=== PATIENT | male | born 1965 | race African-American/Black ===

== ENCOUNTER → 2017-03-16 | Outpatient (CLI) | payer OTHER ==
[~2017-03-16] MED LIST: ALBUTEROL INH INH; CHLO-101 PO; DICL50TA2 PO; FISH OIL PO; GABA300C10 PO; HYDR12.58 PO; METH500T7 PO; THIA100T10 PO; TURM500C4 PO
[2017-03-16 11:56] LABS: HEMATOCRIT 42.7 % (39.2-51.8); HEMOGLOBIN 14.4 g/dL (13.7-18.0); WHITE BLOOD COUNT 5.4 x10^3/uL (3.4-10)
[2017-03-16 12:10] LABS: ASPARTATE AMINO TRANSFERASE 32 U/L (15-37); BLOOD UREA NITROGEN 17 mg/dL (7-18)
[2017-03-16 12:36] LABS: HIV 1&2 ANTIBODY SCREEN Nonreactive (Nonreactive); HIV-1 p24 ANTIGEN Nonreactive (Nonreactive)
== END | disposition home or self-care (01) ==
LOC: STAR 10:36
PROVIDERS: ATTEND Orthopaedic Surgery Orthopaedic Surgery of the Spine
DX: Z01.818 Encounter for other preprocedural examination (principal); M48.06 Spinal stenosis, lumbar region; M54.16 Radiculopathy, lumbar region; R79.1 Abnormal coagulation profile
CPT/HCPCS: 36415; 71020; 80053; 80074; 81003; 85025; 85610; 85651; 85730; 86703; 87899; 93005; G0435

== ENCOUNTER 2017-04-02 05:37 | Inpatient (IN) | payer OTHER ==
[~2017-04-02] VITALS: Ht 188 cm; Wt 72.6 kg
[2017-04-02] MEDS ORDERED: LACTATED RINGERS 1,000 ML IV SCH (06:15)
[2017-04-02] MEDS ORDERED: HEPARIN 1,000 UNITS/ML, 30ML ONE (06:16)
[2017-04-02] MEDS ORDERED: LIDOCAINE/PF 1%, 30ML ONE (06:19)
[2017-04-02] MEDS ORDERED: BUPIVACAINE/PF 0.5% ONE (06:19)
[2017-04-02] MEDS ORDERED: THROMBIN 5,000 UNIT VIAL TP ONE (06:19)
[2017-04-02] MEDS ORDERED: EPINEPHRINE 1 MG/ML, 1ML ONE (06:20)
[2017-04-02] MEDS ORDERED: VANCOMYCIN 1,000 MG ONE (06:20)
[2017-04-02] MEDS ORDERED: BACITRACIN 50,000 UNIT ONE (06:20)
[2017-04-02] MEDS ORDERED: LIDOCAINE 1%, 2ML SQ PRN (06:30)
[2017-04-02 06:46] VITALS: BP 134/91
[2017-04-02] MEDS ORDERED: MIDAZOLAM 1 MG/ML, 2ML ONE (07:24)
[2017-04-02] MEDS ORDERED: FENTANYL PF 100 MCG/2ML ONE ×4 (07:24→11:39)
[2017-04-02] MEDS ORDERED: ONDANSETRON 2MG/ML, 2ML ONE (07:56)
[2017-04-02] MEDS ORDERED: CEFAZOLIN 1,000 MG ONE (07:56)
[2017-04-02] MEDS ORDERED: ROCURONIUM 10 MG/ML ONE (07:56)
[2017-04-02] MEDS ORDERED: PROPOFOL 10 MG/ML, 20ML ONE (07:56)
[2017-04-02] MEDS ORDERED: EPHEDRINE 50 MG/ML, 1ML ONE (07:56)
[2017-04-02] MEDS ORDERED: DEXAMETHASONE 4 MG/ML, 1ML ONE (07:56)
[2017-04-02] MEDS ORDERED: ACETAMINOPHEN 325 MG TABLET PO PRN (08:30)
[2017-04-02] MEDS ORDERED: PROMETHAZINE 25 MG/ML, 1ML IV PRN (08:30)
[2017-04-02] MEDS ORDERED: ALBUTEROL SULFATE 2.5 MG/3 ML NPPB PRN ×2 (08:30→17:00)
[2017-04-02] MEDS ORDERED: DIAZEPAM 5 MG/ML, 2ML IVPush PRN (08:30)
[2017-04-02] MEDS ORDERED: MEPERIDINE/PF 25MG/0.5ML IVPush PRN (08:30)
[2017-04-02] MEDS ORDERED: OXYcodone 5 MG/5 ML ORAL.SOL UDC PO PRN (08:30)
[2017-04-02] MEDS ORDERED: METOPROLOL 1 MG/ML, 5ML IV PRN (08:30)
[2017-04-02] MEDS ORDERED: FENTANYL PF 100 MCG/2ML IV PRN (08:30)
[2017-04-02] MEDS ORDERED: hydrALAzine 20 MG/ML, 1ML IV PRN (08:30)
[2017-04-02] MEDS ORDERED: HYDROmorphone 2 MG/ML, 1ML ONE (12:13)
[2017-04-02] MEDS ORDERED: FENTANYL PF 100 MCG/2ML EPIDPUSH ONE (12:30)
[2017-04-02] MEDS ORDERED: morphine SULFATE/PF 1 MG/ML, 10ML IVPush ONE (12:30)
[2017-04-02] MEDS ORDERED: ACETAMINOPHEN 325 MG TABLET ONE (14:12)
[2017-04-02] MEDS ORDERED: OXYcodone 5 MG/5 ML ORAL.SOL UDC ONE (14:13)
[2017-04-02] MEDS ORDERED: HYDROmorphone 1 MG/ML, 1ML ONE (14:17)
[2017-04-02] MEDS: HYDROmorphone 1 MG/ML, 1ML IV PRN ×2 (14:19→14:46)
[2017-04-02] MEDS ORDERED: ACETAMINOPHEN 500 MG TABLET PO ONE (14:30)
[2017-04-02] MEDS ORDERED: HYDROmorphone 5 MG, BUPIVACAINE/PF 0.5%, 30ML 62.5 ML in SODIUM CHLORIDE 0.9% 182.5 ML EPIDCONT SCH ×2 (14:30→16:00)
[2017-04-02] MEDS ORDERED: OXYcodone IR 5MG TABLET PO PRN (16:00)
[2017-04-02] MEDS ORDERED: ALBUTEROL SULFATE 200 PUFFS/8.5 GR INH INH PRN (16:00)
[2017-04-02] MEDS ORDERED: NALOXONE 0.4 MG/ML, 1ML IV PRN (16:00)
[2017-04-02] MEDS ORDERED: PROMETHAZINE 25 MG SUPP PR PRN (16:00)
[2017-04-02] MEDS ORDERED: EPHEDRINE 50 MG/ML, 1ML IVPush PRN (16:00)
[2017-04-02] MEDS ORDERED: DIPHENHYDRAMINE 50 MG/ML, 1ML IVPush PRN (16:00)
[2017-04-02] MEDS ORDERED: PROMETHAZINE 25 MG/ML, 1ML IM PRN (16:30)
[2017-04-02] MEDS ORDERED: BISACODYL 10 MG SUPP PR PRN (16:30)
[2017-04-02] MEDS ORDERED: DIAZEPAM 5 MG TABLET PO PRN (16:30)
[2017-04-02] MEDS ORDERED: DIPHENHYDRAMINE 50 MG/ML, 1ML IM PRN (16:30)
[2017-04-02] MEDS ORDERED: DIAZEPAM 5 MG/ML, 2ML IV PRN (16:30)
[2017-04-02] MEDS ORDERED: MAGNESIUM HYDROXIDE 8%, 30ML UDC PO PRN (16:30)
[2017-04-02] MEDS ORDERED: DIPHENHYDRAMINE 50 MG CAPSULE PO PRN (16:30)
[2017-04-02] MEDS ORDERED: LABETALOL 5MG/ML, 20ML IV PRN (16:30)
[2017-04-02] MEDS ORDERED: HYDROmorphone 2 MG/ML, 1ML IM PRN (16:30)
[2017-04-02] MEDS: METOCLOPRAMIDE 5 MG/ML, 2ML IV SCH (17:12)
[2017-04-02] MEDS: CEFAZOLIN PMX 1GM/50ML 50 ML IVPB SCH ×2 (17:15→20:12)
[2017-04-02] MEDS: D5%-0.9% NACL+KCL 20MEQ 1,000 ML IV SCH (17:15)
[2017-04-02 19:29] VITALS: BP 123/67
[2017-04-02] MEDS ORDERED: GABAPENTIN 300 MG CAPSULE PO SCH (21:00)
[2017-04-02] MEDS: GABAPENTIN 300 MG CAPSULE PO SCH (21:11)
[2017-04-02] MEDS: ACETAMINOPHEN 500 MG TABLET PO SCH (21:11)
[2017-04-03] VITALS (8 sets, daily range): BP systolic 96–105; BP diastolic 55–67
[2017-04-03] MEDS: METOCLOPRAMIDE 5 MG/ML, 2ML IV SCH ×2 (00:18→09:28)
[2017-04-03] MEDS: D5%-0.9% NACL+KCL 20MEQ 1,000 ML IV SCH ×3 (00:30→19:39)
[2017-04-03] MEDS: CEFAZOLIN PMX 1GM/50ML 50 ML IVPB SCH ×3 (03:53→23:21)
[2017-04-03] MEDS ORDERED: KETOROLAC 30 MG/1 ML IM ONE (07:00)
[2017-04-03] MEDS: HYDROCHLOROTHIAZIDE 12.5 MG CAPSULE PO SCH (09:00)
[2017-04-03] MEDS: CETIRIZINE 10 MG TABLET PO SCH (09:26)
[2017-04-03] MEDS: GABAPENTIN 300 MG CAPSULE PO SCH ×3 (09:26→20:56)
[2017-04-03] MEDS: ACETAMINOPHEN 500 MG TABLET PO SCH ×3 (09:26→20:56)
[2017-04-03] MEDS: SENNA/DOCUSATE TABLET PO SCH (09:28)
[2017-04-03] MEDS ORDERED: METHYLNALTREXONE 12 MG/0.6 ML SQ ONE (13:30)
[2017-04-03] MEDS ORDERED: ZOLPIDEM 5MG TABLET PO PRN (21:00)
[2017-04-04] MEDS: D5%-0.9% NACL+KCL 20MEQ 1,000 ML IV SCH ×4 (00:30→23:39)
[2017-04-04 03:29] VITALS: BP 94/57
[2017-04-04] MEDS: OXYcodone IR 5MG TABLET PO PRN ×2 (03:54→10:26)
[2017-04-04 07:00] VITALS: BP 113/67
[2017-04-04] MEDS: CEFAZOLIN PMX 1GM/50ML 50 ML IVPB SCH ×3 (07:00→23:02)
[2017-04-04] MEDS: ACETAMINOPHEN 500 MG TABLET PO SCH ×3 (08:24→20:33)
[2017-04-04] MEDS: HYDROCHLOROTHIAZIDE 12.5 MG CAPSULE PO SCH (08:24)
[2017-04-04] MEDS: CETIRIZINE 10 MG TABLET PO SCH (08:24)
[2017-04-04] MEDS: GABAPENTIN 300 MG CAPSULE PO SCH ×3 (08:24→20:33)
[2017-04-04] MEDS: SENNA/DOCUSATE TABLET PO SCH (08:25)
[2017-04-04] MEDS ORDERED: OXYcodone IR 5MG TABLET PO SCH (14:00)
[2017-04-04 15:15] VITALS: BP 117/61
[2017-04-04 15:20] VITALS: BP 121/77
[2017-04-04 15:22] VITALS: BP 120/86
[2017-04-04] MEDS ORDERED: METHYLNALTREXONE 12 MG/0.6 ML SQ ONE (16:00)
[2017-04-04 19:00] VITALS: BP 111/60
[2017-04-05 01:45] VITALS: BP 112/72
[2017-04-05] MEDS: OXYcodone IR 5MG TABLET PO SCH ×3 (01:48→10:35)
[2017-04-05 06:31] VITALS: BP 132/90
[2017-04-05 06:35] VITALS: BP 139/84
[2017-04-05 06:38] VITALS: BP 135/84
[2017-04-05] MEDS: CEFAZOLIN PMX 1GM/50ML 50 ML IVPB SCH (07:51)
[2017-04-05] MEDS: ACETAMINOPHEN 500 MG TABLET PO SCH (07:59)
[2017-04-05] MEDS: SENNA/DOCUSATE TABLET PO SCH (08:00)
[2017-04-05] MEDS: GABAPENTIN 300 MG CAPSULE PO SCH (08:00)
[2017-04-05] MEDS: CETIRIZINE 10 MG TABLET PO SCH (08:00)
[2017-04-05] MEDS: HYDROCHLOROTHIAZIDE 12.5 MG CAPSULE PO SCH (08:01)
[2017-04-05] MEDS: D5%-0.9% NACL+KCL 20MEQ 1,000 ML IV SCH (08:01)
[2017-04-05 11:55] VITALS: BP 141/76
[2017-04-05] MEDS ORDERED: OXYC5CAP2 PO (13:06)
== END 2017-04-05 13:25 | disposition home or self-care (01) | DRG 460 ==
LOC: ORIP 05:37 → 4NOR 15:25 → DCLOUNGE 04-05 12:55
PROVIDERS: ADMIT Orthopaedic Surgery Orthopaedic Surgery of the Spine; ATTEND Orthopaedic Surgery Orthopaedic Surgery of the Spine
PROC: 0SB20ZZ Excision of Lumbar Vertebral Disc, Open Approach (ICD-10-PCS; 2017-04-02)
PROC: 01NB0ZZ Release Lumbar Nerve, Open Approach (ICD-10-PCS; 2017-04-02)
PROC: 0SH004Z Insertion of Internal Fixation Device into Lumbar Vertebral Joint, Open Approach (ICD-10-PCS; 2017-04-02)
PROC: 4A11X4G Monitoring of Peripheral Nervous Electrical Activity, Intraoperative, External Approach (ICD-10-PCS; 2017-04-02)
PROC: 07DR3ZZ Extraction of Iliac Bone Marrow, Percutaneous Approach (ICD-10-PCS; 2017-04-02)
PROC: 3E0S3CZ (ICD-10-PCS; 2017-04-02)
PROC: 00HU33Z Insertion of Infusion Device into Spinal Canal, Percutaneous Approach (ICD-10-PCS; 2017-04-02)
PROC: 0SG30A1 (ICD-10-PCS; principal; 2017-04-02 07:30)
DX: M48.06 Spinal stenosis, lumbar region (principal); I10 Essential (primary) hypertension; E78.5 Hyperlipidemia, unspecified; M47.26 Other spondylosis with radiculopathy, lumbar region; G47.33 Obstructive sleep apnea (adult) (pediatric); M46.96 Unspecified inflammatory spondylopathy, lumbar region; Z87.01 Personal history of pneumonia (recurrent); Z88.8 Allergy status to other drugs, medicaments and biological substances
CPT/HCPCS: 36415; 72100; 86850; 86900; 86923; 93970; C1713; C1776; J0171; J0690; J1100; J1170; J1644; J1885; J2250; J2274; J2405; J2704; J3010; J3370; J3490; C1751; C1762; J2765; J3480; J7050; J7120

== ENCOUNTER 2017-12-11 08:28 | Inpatient (IN) | payer OTHER ==
[2017-11-30 08:58] LABS: MEAN CORPUSCULAR HEMOGLOBIN 29.2 pg (27.5-34.5); MEAN CORPUSCULAR VOLUME 85.4 fL (81-97); RED BLOOD COUNT 4.87 x10^6/uL (4.38-5.82)
[2017-11-30 08:59] LABS: BASOPHILS # (AUTO) 0.02 x10^3/uL (0-0.1); BASOPHILS % (AUTO) 1 % (0-1); EOSINOPHILS # (AUTO) 0.23 x10^3/uL (0-0.4); EOSINOPHILS % (AUTO) 5 % (1-7); LYMPHOCYTES # (AUTO) 1.35 x10^3/uL (1-3.4); LYMPHOCYTES % (AUTO) 30 % (22-44); MD NO; MEAN CORPUSCULAR HGB CONC 34.2 g/dL (33.2-36.2); MEAN PLATELET VOLUME 9.2 fL (7.4-10.4); MONOCYTES % (AUTO) 4 % (2-9); NEUTROPHILS # (AUTO) 2.78 x10^3/uL (1.8-6.8); NEUTROPHILS % (AUTO) 61 % (42-75); PLATELET COUNT 186 x10^3/uL (130-400); RED CELL DISTRIBUTION WIDTH 16.4 % (9.4-14.8)
[2017-11-30 09:00] LABS: HCT (SEDRATE) 41.5 % (39.2-51.8)
[2017-11-30 09:03] LABS: INTERNATIONAL NORMALIZED RATIO 1.03 (0.93-1.1); PROTHROMBIN TIME 10.7 Seconds (9.6-11.5)
[2017-11-30 09:05] LABS: ALANINE AMINOTRANSFERASE 53 U/L (12-78); ALBUMIN 4.1 g/dL (3.4-5.0); ANION GAP 7 mmol/L (5-15); CALCIUM 9.7 mg/dL (8.5-10.1); CHLORIDE 106 mmol/L (98-107); CREATININE 0.95 mg/dL (0.7-1.3)
[2017-11-30 09:07] LABS: MICROSCOPIC NOT IND
[2017-11-30 09:08] LABS: ALKALINE PHOSPHATASE 60 U/L (45-117); BILIRUBIN,TOTAL 0.4 mg/dL (0.2-1.0); TOTAL PROTEIN 8.4 g/dL (6.4-8.2)
[~2017-12-11] VITALS: Ht 182.9 cm; Wt 121.8 kg
[~2017-12-11 08:28] MED LIST changes: +ATOR-2 PO; +BACITRACIN 50,000 UNIT ONE; +BUPIVACAINE/PF 0.5% ONE; +CELE200C PO; +EPINEPHRINE 1 MG/ML, 1ML ONE; +HYDR-3307 PO; +LIDOCAINE/PF 1%, 30ML ONE; +MULT-516 PO; +OXYC5CAP2 PO; +THROMBIN 5,000 UNIT VIAL TP ONE; +VANCOMYCIN 1,000 MG ONE
[2017-12-11 09:08] VITALS: BP 132/86
[2017-12-11] MEDS ORDERED: LABETALOL 5MG/ML, 20ML IV PRN (09:30)
[2017-12-11] MEDS ORDERED: ONDANSETRON 2MG/ML, 2ML IVPush PRN (09:30)
[2017-12-11] MEDS ORDERED: MEPERIDINE/PF 25MG/0.5ML IVPush PRN (09:30)
[2017-12-11] MEDS ORDERED: OXYcodone 5 MG/5 ML ORAL.SOL UDC PO PRN (09:30)
[2017-12-11] MEDS ORDERED: HYDROmorphone 2 MG/ML, 1ML IV PRN (09:30)
[2017-12-11] MEDS ORDERED: MIDAZOLAM 1 MG/ML, 2ML IV PRN (09:30)
[2017-12-11] MEDS ORDERED: FENTANYL PF 100 MCG/2ML IV PRN (09:30)
[2017-12-11] MEDS ORDERED: LACTATED RINGERS 1,000 ML IV SCH (10:00)
[2017-12-11] MEDS ORDERED: ONDANSETRON 2MG/ML, 2ML ONE (10:27)
[2017-12-11] MEDS ORDERED: DEXAMETHASONE 4 MG/ML, 1ML ONE (10:27)
[2017-12-11] MEDS ORDERED: METOCLOPRAMIDE 5 MG/ML, 2ML ONE (10:28)
[2017-12-11] MEDS ORDERED: SUCCINYLCHOLINE 20 MG/ML, 10ML ONE (10:28)
[2017-12-11] MEDS ORDERED: LIDOCAINE-MPF 2% ,5ML ONE (10:29)
[2017-12-11] MEDS ORDERED: PROPOFOL 10 MG/ML, 20ML ONE (10:29)
[2017-12-11] MEDS ORDERED: REMIFENTANIL 2 MG ONE (11:42)
[2017-12-11] MEDS ORDERED: KETAMINE 100 MG/ML, 5ML ONE (11:42)
[2017-12-11] MEDS ORDERED: MIDAZOLAM 1 MG/ML, 2ML ONE (11:48)
[2017-12-11] MEDS ORDERED: FENTANYL PF 100 MCG/2ML ONE ×2 (11:55→14:29)
[2017-12-11] MEDS ORDERED: CEFAZOLIN 1,000 MG ONE ×2 (12:11)
[2017-12-11] MEDS ORDERED: EPHEDRINE 50 MG/ML, 1ML ONE (12:11)
[2017-12-11] MEDS ORDERED: GLYCOPYRROLATE 0.4 MG/2 ML, 2ML ONE (12:14)
[2017-12-11] MEDS ORDERED: GENTAMICIN 80 MG/2 ML ONE (12:22)
[2017-12-11] MEDS ORDERED: ALBUTEROL SULFATE 2.5 MG/3 ML NPPB PRN (15:30)
[2017-12-11] MEDS ORDERED: DIPHENHYDRAMINE 50 MG/ML, 1ML IM PRN (15:30)
[2017-12-11] MEDS ORDERED: MAGNESIUM HYDROXIDE 8%, 30ML UDC PO PRN (15:30)
[2017-12-11] MEDS ORDERED: DIAZEPAM 5 MG/ML, 2ML IV PRN (15:30)
[2017-12-11] MEDS ORDERED: ONDANSETRON 2MG/ML, 2ML IV PRN (15:30)
[2017-12-11] MEDS ORDERED: PROMETHAZINE 25 MG/ML, 1ML IM PRN (15:30)
[2017-12-11] MEDS ORDERED: DIPHENHYDRAMINE 50 MG/ML, 1ML IVPush PRN (15:30)
[2017-12-11] MEDS ORDERED: DIPHENHYDRAMINE 50 MG CAPSULE PO PRN (15:30)
[2017-12-11] MEDS ORDERED: DIAZEPAM 5 MG TABLET PO PRN (15:30)
[2017-12-11] MEDS ORDERED: BISACODYL 10 MG SUPP PR PRN (15:30)
[2017-12-11] MEDS ORDERED: PROMETHAZINE 25 MG SUPP PR PRN (16:00)
[2017-12-11] MEDS ORDERED: OXYcodone IR 5MG TABLET PO PRN ×2 (16:00)
[2017-12-11] MEDS: D5%-0.9% NACL+KCL 20MEQ 1,000 ML IV SCH (16:05)
[2017-12-11] MEDS: GABAPENTIN 300 MG CAPSULE PO SCH ×2 (16:51→22:13)
[2017-12-11] MEDS: ACETAMINOPHEN 500 MG TABLET PO SCH ×2 (16:51→22:13)
[2017-12-11] MEDS: ALBUTEROL SULFATE 2.5 MG/3 ML NPPB SCH (19:08)
[2017-12-11] MEDS: CEFAZOLIN PMX 1GM/50ML 50 ML IVPB SCH (20:18)
[2017-12-11 20:33] VITALS: BP 114/70
[2017-12-11] MEDS ORDERED: ATORVASTATIN 80 MG TABLET PO SCH (21:00)
[2017-12-11] MEDS: OXYcodone IR 5MG TABLET PO PRN (22:13)
[2017-12-12 00:01] VITALS: BP 102/2
[2017-12-12] MEDS: D5%-0.9% NACL+KCL 20MEQ 1,000 ML IV SCH ×2 (00:59→07:30)
[2017-12-12 03:29] VITALS: BP 101/65
[2017-12-12] MEDS: CEFAZOLIN PMX 1GM/50ML 50 ML IVPB SCH ×2 (04:41→11:48)
[2017-12-12] MEDS: OXYcodone IR 5MG TABLET PO PRN ×3 (04:41→12:55)
[2017-12-12 06:55] VITALS: BP 103/67
[2017-12-12] MEDS: ACETAMINOPHEN 500 MG TABLET PO SCH (08:38)
[2017-12-12] MEDS: GABAPENTIN 300 MG CAPSULE PO SCH (08:39)
[2017-12-12] MEDS: ALBUTEROL SULFATE 2.5 MG/3 ML NPPB SCH (08:45)
[2017-12-12] MEDS ORDERED: CHLORPHENIRAMINE 4 MG TABLET PO SCH (09:00)
[2017-12-12] MEDS ORDERED: THIAMINE 100MG TABLET PO SCH (09:00)
[2017-12-12] MEDS ORDERED: SENNA/DOCUSATE TABLET PO SCH (09:00)
[2017-12-12] MEDS ORDERED: HYDROCHLOROTHIAZIDE 12.5 MG CAPSULE PO SCH (09:00)
[2017-12-12 14:13] VITALS: BP 144/94
== END 2017-12-12 14:34 | disposition home or self-care (01) | DRG 517 ==
LOC: OUT 08:28 → 4NOR 14:59 → OUT 15:06 → 4NOR 15:07 → DCLOUNGE 12-12 14:22
PROVIDERS: ADMIT Orthopaedic Surgery Orthopaedic Surgery of the Spine; ATTEND Orthopaedic Surgery Orthopaedic Surgery of the Spine
PROC: 4A1134G Monitoring of Peripheral Nervous Electrical Activity, Intraoperative, Percutaneous Approach (ICD-10-PCS; 2017-12-11)
PROC: 01NB0ZZ Release Lumbar Nerve, Open Approach (ICD-10-PCS; principal; 2017-12-11 10:30)
DX: M48.061 Spinal stenosis, lumbar region without neurogenic claudication (principal); E66.9 Obesity, unspecified; G47.33 Obstructive sleep apnea (adult) (pediatric); M54.16 Radiculopathy, lumbar region; M21.371 Foot drop, right foot; Z98.1 Arthrodesis status; Z88.8 Allergy status to other drugs, medicaments and biological substances; Z91.041 Radiographic dye allergy status; Z79.899 Other long term (current) drug therapy; Z68.36 Body mass index [BMI] 36.0-36.9, adult
CPT/HCPCS: 36415; 71046; 80053; 80074; 81003; 85025; 85610; 85651; 85730; 86850; 86900; 86923; 87806; 94640; J0171; J0690; J1100; J2250; J2270; J2405; J2704; J3010; J3370; J3490; J7613; G0475; J0330; J1580; J2765; J3480; J7120